=== PATIENT | female | born 1980 | race Caucasian/White ===

== ENCOUNTER 2018-07-01 02:46 | Emergency (ER) | payer OTHER ==
[2018-07-01] MEDS: IBUPROFEN 600 MG TAB PO (04:26)
[2018-07-01] MEDS: ACETAMINOPHEN 325 MG TAB PO (04:26)
== END 2018-07-01 05:03 | disposition home or self-care (01) ==
LOC: FTE 02:46
DX: J03.90 Acute tonsillitis, unspecified (principal)
CPT/HCPCS: 99283; Z7502

== ENCOUNTER 2018-07-04 21:17 | Emergency (ER) | payer SELFPAY, OTHER | END 2018-07-04 22:34 | disposition left against medical advice (07) | LOC: FTE 22:34 | DX: Z53.21 Procedure and treatment not carried out due to patient leaving prior to being seen by health care provider (principal) ==